=== PATIENT | male | born 1985 | race Caucasian/White ===

== ENCOUNTER 2017-12-29 16:15 | Emergency (ER) | payer SELFPAY ==
[2017-12-29 16:30] VITALS: BP 116/72
[2017-12-29] MEDS ORDERED: PERCOCET 5/325 PO ONE (21:30)
[2017-12-29] MEDS ORDERED: LIDOCAINE VISCOUS 2% MM ONE (21:35)
--- NOTE | 2017-12-29 21:43 | Emergency Department Report ---
HPI - General Chief Complaint: Rectal Pain Time Seen by Provider: 12/29/17 21:23 - HPI HPI: Room 8 The patient is a 32-year-old male presenting with chief complaint rectal pain. The patient states he has a hemorrhoid which leads to pain whenever he has a bowel movement and rectal bleeding for the past 3 weeks. The patient states he saw his primary physician 3 weeks ago and was given a suppository and a "pain pill." The patient states it has not helped. The patient went to see his primary physician second time approximately 5 days ago and was given a second cream but states it has not helped. The patient states about 4 days ago he went to [facility] emergency department where he received a CAT scan and labs which were all negative. The patient gives his pain a score of 8/10 Location: Rectum Duration: 3 weeks Quality: Pain Severity:8/10 Modifying factors: [see above] Context: [see above] Mode of transportation: [not driving] ED Past Medical Hx - Past Medical History Hx Hypertension: Yes Hx Diabetes: Yes - Surgical History Past Surgical History?: No - Family History Family history: no significant - Social History Smoking Status: Former Smoker (none 6 years) Substance Use Type: None (denies illicit drug use) - Medications Home Medications: Home Medications Medication Instructions Recorded Confirmed Last Taken Type oxyCODONE /ACETAMINOPHEN [Percocet 1 - 2 tab PO Q6HR PRN #20 tablet 12/29/17 Unknown Rx 5/325] ED Review of Systems ROS: Stated complaint: HEMORRHOIDS Other details as noted in HPI Constitutional: fever (subjective) Eyes: denies: eye pain ENT: denies: throat pain Respiratory: no symptoms reported Cardiovascular: denies: chest pain Endocrine: no symptoms reported Gastrointestinal: other (rectal pain). denies: abdominal pain, nausea, vomiting Genitourinary: denies: dysuria Musculoskeletal: denies: back pain Neurological: denies: headache Physical Exam - Physical Exam Vital Signs: Vital Signs 12/29/17 16:26 Temperature 98.8 F Pulse Rate 69 Respiratory 17 Rate Blood Pressure 116/72 O2 Sat by Pulse 98 Oximetry Physical Exam: GENERAL: The patient is well-developed well-nourished male lying on stretcher on his abdomen appearing to be in mild discomfort. [] HEENT: Normocephalic. Atraumatic. Extraocular motions are intact. Patient has moist mucous membranes. NECK: Supple. Trachea midline CHEST/LUNGS: Clear to auscultation. There is no respiratory distress noted. HEART/CARDIOVASCULAR: Regular. There is no tachycardia. There is no gallop rub or murmur. ABDOMEN: Abdomen is soft, nontender. Patient has normal bowel sounds. There is no abdominal distention. SKIN: There is no rash. There is no edema. There is no diaphoresis. NEURO: The patient is awake, alert, and oriented. The patient is cooperative. The patient has no focal neurologic deficits. The patient has normal speech and gait. MUSCULOSKELETAL: There is no evidence of acute injury. RECTAL: No external hemorrhoids seen. Patient is tender inside the rectum to the left lateral aspect. No fluctuance palpated ED Course Vital Signs 12/29/17 16:26 Temperature 98.8 F Pulse Rate 69 Respiratory 17 Rate Blood Pressure 116/72 O2 Sat by Pulse 98 Oximetry - Reevaluation(s) Reevaluation #1: 12/29/17 22:44 Patient states he feels improved. ED Medical Decision Making - Lab Data Result diagrams: 12/29/17 21:35 12/29/17 21:35 Laboratory Tests 12/29/17 12/29/17 12/29/17 21:35 21:35 21:35 WBC 8.5 RBC 4.61 Hgb 14.2 Hct 41.5 MCV 90 MCH 31 MCHC 34 RDW 13.3 Plt Count 276 Lymph % (Auto) 38.4 H [place] % (Auto) 11.0 H Eos % (Auto) 2.5 Baso % (Auto) 0.6 Lymph # 3.3 [place] # 0.9 H Eos # 0.2 Baso # 0.0 Seg Neutrophils % 47.5 Seg Neutrophils # 4.1 VBG pH 7.331 Sodium 137 Potassium 4.2 Chloride 98.3 Carbon Dioxide 26 Anion Gap 17 BUN 12 Creatinine 0.8 Estimated GFR > 60 BUN/Creatinine Ratio 15 Glucose 107 H Calcium 9.6 - Medical Decision Making CT abdomen and pelvis report performed at [facility] 2017 reviewed and it reveals: No abnormality to explain the reported rectal bleeding. Moderate to severe hepatic steatosis. - Differential Diagnosis hemorrhoids, perirectal abscess, rectal mass Critical care attestation.: If time is entered above; I have spent that time in minutes in the direct care of this critically ill patient, excluding procedure time. ED Disposition Clinical Impression: Rectal pain Disposition: [id number] TO HOME OR SELFCARE Is pt being admited?: No Does the pt Need Aspirin: No Condition: Stable Instructions: Rectal Bleeding (ED), Hemorrhoids (ED) Additional Instructions: Return to the emergency department immediately should you develop worsening symptoms, fever, inability to tolerate food or liquid or any other concerns. Prescriptions: oxyCODONE /ACETAMINOPHEN [Percocet 5/325] 1 - 2 tab PO Q6HR PRN #20 tablet PRN Reason: Pain Referrals: [facility] [Outside] - 3-5 Days (Please contact the [facility] to follow-up with a estate conservator.) KRISTAL GUAMAN MD [Staff Physician] - [facility] (Dr. Guaman is a estate conservator. Please follow up with him or another estate conservator for further evaluation) Time of Disposition: 22:46
[2017-12-29 21:49] LABS: Basophils % (Auto) 0.6 % (0.0-1.8); Eosinophils # (Auto) 0.2 K/mm3 (0.0-0.4); Eosinophils % (Auto) 2.5 % (0.0-4.3); Hematocrit 41.5 % (35.5-45.6); Hemoglobin 14.2 gm/dl (11.8-15.2); Lymphocytes # (Auto) 3.3 K/mm3 (1.2-5.4); Lymphocytes % (Auto) 38.4 % (13.4-35.0); Mean Corpuscular HGB Conc 34 % (32-34); Mean Corpuscular Hemoglobin 31 pg (28-32); Mean Corpuscular Volume 90 fl (84-94); Monocytes # (Auto) 0.9 K/mm3 (0.0-0.8); Platelet Count 276 K/mm3 (140-440); Red Blood Count 4.61 M/mm3 (3.65-5.03); Red Cell Distribution Width 13.3 % (13.2-15.2)
[2017-12-29 22:13] LABS: BUN/Creatinine Ratio 15; Blood Urea Nitrogen 12 mg/dL (9-20); Calcium 9.6 mg/dL (8.4-10.2); Hemolysis Index 3
== END 2017-12-29 23:04 | disposition home or self-care (01) ==
LOC: ED 16:15
DX: K62.89 Other specified diseases of anus and rectum (principal); I10 Essential (primary) hypertension; E11.9 Type 2 diabetes mellitus without complications; Z87.891 Personal history of nicotine dependence
CPT/HCPCS: 36415; 80048; 82805; 85025; 99283